=== PATIENT | male | born 2000 | race Two or more races ===

== ENCOUNTER 2023-06-17 19:17 | Emergency (ER) | payer MEDICARE, MEDICAID, SELFPAY ==
[2023-06-17 19:29] VITALS: BMI 32.3
--- NOTE | 2023-06-17 19:29 | ED_ITS ---
HPI - Extremity Injury (Upper) General Chief Complaint: Extremity Injury, Upper Stated Complaint: RT thumb injury Time Seen by Provider: 06/17/23 19:34 Source: patient and family Mode of arrival: ambulatory Limitations: no limitations History of Present Illness HPI narrative: Patient is a 22-year-old male who presents emergency department with his mother for evaluation of a paronychia to the right thumb. Onset was initially 1 week ago. Father used a clean insulin needle to try and drain the area, initially had a lot of pus drainage but then it reaccumulated. Continues to have surrounding redness, swelling, no reports of pain. Full AROM to the finger. Denies fevers, chills. Related Data Previous Rx's Medication Instructions Recorded cephalexin 500 mg capsule 500 mg PO QID 5 days #20 caps 06/17/23 mupirocin 2 % topical ointment 1 appl topical BID #15 grams 06/17/23 Allergies Allergy/AdvReac Type Severity Reaction Status Date / Time No Known Allergies Allergy Verified 06/17/23 19:34 Review of Systems Review of Systems: Yes all other systems are reviewed and are negative [facility] Past Medical History Attestation statement: The following information was validated with the patient. Source: old records reviewed Physical Exam Vital Signs: Vital Signs: BMI result Body Mass Index 32.3 Appearance: Alert.?Oriented to person, place and time. No acute distress.?Normal affect. Eyes: Pupils equal, round and reactive to light.? ENT: Pharynx normal.?? Neck: Normal inspection.? Neck supple.?? CVS: Heart sounds normal. Normal heart rate and rhythm.? Pulses normal.?? Respiratory: No respiratory distress.? Lung sounds clear to auscultation bilaterally??? Skin: Skin warm and dry.? Normal skin color.? Paronychia of right thumb. Extremities: full AROM to hand. and fingers Neuro: Moves all extremities spontaneously. Sensation intact bilaterally. Ambulates with normal steady gait. Medications Administered Discontinued Medications Generic Name Dose Route Start Last Admin Trade Name Freq PRN Reason Stop Dose Admin Lidocaine HCl 1 appl 06/17/23 19:34 06/17/23 19:44 Lidocaine 4 % Cream Kit TOPICAL 06/17/23 19:35 1 appl ONCE ONE Administration Protocol Lidocaine HCl 5 ml 06/17/23 20:11 06/17/23 20:21 Lidocaine Hcl 1 % Mpf 5 Ml Vial SUBCUT 06/17/23 20:12 5 ml ONCE ONE Administration Medical Decision Making Medical Decision Making MDM Narrative: Patient is a 22-year-old male who presents emergency department for evaluation of redness and swelling to the finger examination is consistent with paronychia. Not consistent with septic arthritis has full AROM is present afebrile. S/p incision and drainage as per procedure note and tolerated well. Plan to treat with course of antibiotics for localized cellulitis. Advised outpatient follow- up with primary care provider, discussed worrisome signs and symptoms that would warrant re-evaluation emergency department. All questions answered. Stable for discharge home. Differential Diagnosis Differential Diagnoses: The differential diagnosis associated with the presentation includes ( as noted above) Independent Historian Clinical information obtained from an independent historian. History obtained from or confirmed by: Parent ( present at bedside who confirms history) Tests considered The following testing was considered but not selected: considered XR imaging and labs, unlikely osseous involvement, see narrative above, XR deferred Prescription Management I considered prescription management with: Antibiotic Procedures Abscess I/D Site: hand Side (if applicable): right Local Anesthetic: lidocaine 1% and other anesthetic ( topical lidocaine) Amount of anesthesia used (mL): 1 Technique: needle aspiration and incised with blade Sent for culture/gram staining?: No Packing used?: none Discharge Plan Discharge Clinical Impression: Paronychia of finger Qualifiers: Laterality: right Qualified Code(s): L03.011 - Cellulitis of right finger Patient Disposition: Home, Self-Care Instructions: Paronychia (ED) Additional Instructions: Avoid biting nails, picking at hang nails. apply Antibiotic cream as prescribed and take the oral antibiotic as prescribed. Follow-up with your primary care provider for persistent symptoms. Return back to the emergency department any new or worsening symptoms or concerns. Prescriptions: New mupirocin 2 % ointment 1 appl topical BID Qty: 15 0RF cephalexin 500 mg capsule 500 mg PO QID 5 Days Qty: 20 0RF Referrals: Physician,Unknown J [Primary Care Provider] -
[2023-06-17] MEDS: Lidocaine 4 % Cream KIT 1 APPL TOPICAL (19:44)
--- NOTE | 2023-06-17 19:53 | PC.NURSE ---
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
[2023-06-17] MEDS: Lidocaine HCl 1 % MPF 5 ML VIAL SUBCUT (20:21)
[2023-06-17] MEDS: cephALEXin 500 MG CAPSULE PO (20:41)
--- OUTSIDE RECORDS SUMMARY | 2023-06-17 20:57 | XMS_ITS | Continuity of Care Document ---
Author Name Unknown Organization [facility] Address [address] [place] [address]- Encounter PSS Date(s): 08/18/22 - 08/25/22 [facility] [address] [place] [address]- Attending Physician: Not on Staff, Attending MD Allergies, Adverse Reactions, Alerts Substance Reaction Severity Status Arielle Active Benadryl makes him hyper Active Bee Stings anaphylaxis Active Concerta uncontrollable movements Act newton Immunizations Given and Recorded Vaccine Date Status Refusal Reason Meningococcal Conjugate Vaccine 05/03/19 Recorded Meningococcal Conjugate Vaccine 01/14/15 Recorded Human Papillomavirus Vaccine 04/04/17 Recorded Human Papillomavirus Vaccine 01/21/16 Recorded Human Papillomavirus Vaccine 01/14/15 Recorded Varicella Virus Vaccine 01/21/16 Recorded Varicella Virus Vaccine 09/10/03 Recorded Hepatitis A Vaccine (oldterm) 01/21/16 Recorded Hepatitis A Vaccine (oldterm) 10/09/12 Recorded tetanus/diphtheria/pertussis, acel(Tdap) 01/14/15 Recorded Influenza Virus Vaccine (oldterm) 04/17/14 Recorde d Measles/Mumps/Rubella Virus Vaccine 04/13/07 Recor ded Measles/Mumps/Rubella Virus Vaccine 09/10/03 Recor ded Poliovirus Vaccine, Inactivated 12/11/06 Recorded Poliovirus Vaccine, Inactivated 03/07/04 Recorded Poliovirus Vaccine, Inactivated 03/23/03 Recorded Poliovirus Vaccine, Inactivated 01/17/03 Recorded Poliovirus Vaccine, Inactivated 02 Recorded diphtheria/tetanus/pertussis, acel(DTaP) 12/07/06 Recorded diphtheria/tetanus/pertussis, acel(DTaP) 03/07/04 Recorded diphtheria/tetanus/pertussis, acel(DTaP) 03/23/03 Recorded diphtheria/tetanus/pertussis, acel(DTaP) 01/17/03 Recorded diphtheria/tetanus/pertussis, acel(DTaP) 02 Recorded Haemophilus B Conj Vaccine (oldterm) 03/07/04 Lei rded Haemophilus B Conj Vaccine (oldterm) 03/23/03 Lei rded Haemophilus B Conj Vaccine (oldterm) 01/17/03 Lei rded Haemophilus B Conj Vaccine (oldterm) 02 Lei rded Hepatitis B Vaccine (old term) 06/19/03 Recorded Hepatitis B Vaccine (old term) 01/17/03 Recorded Hepatitis B Vaccine (old term) 02 Recorded Medications albuterol CFC free 90 mcg/inh inhalation aerosol 2, puffs, Inhalation, Every 4 hours, PRN, # 2 each, Refills 0, Tot. Refills 0, Maintenance, 04/26/22 13:41:00 EDT, Aerosol, Route to Pharmacy Electronically, [id number], [facility], 172.72, cm, 04/26/22 13:12:00 E... Start Date: 04/26/22 Status: Ordered EpiPen 2-Wayne 0.3 mg injectable kit = 0.3 mg, Intramuscular, Once, # 2 each, 1 Refills, Soft Stop, 04/26/22 13:41:00 EDT, [facility], Partial fill upon patient request if the prescription is for a schedule II opioid drug., 172.72, cm, 04/26/22 13:12:00 EDT, Height, 108.4, kg... Start Date: 04/26/22 Status: Ordered Flovent Diskus 250 mcg/inh inhalation powder 1 puffs, Inhalation, 2 times a day, # 1 each, 11 Refills, Maintenance, 04/26/22 13:42:00 EDT, Powder, [facility], Partial fill upon patient request if the prescription is for a schedule II opioid drug., 1 puffs Inhalation 2 times a day,x30... Start Date: 04/26/22 Stop Date: 04/21/23 Status: Ordered fluvoxaMINE 50 mg oral tablet 2 tablet = 100 mg, By Mouth, Daily at bedtime, prescribed by Dr. Valdes, 0 Refills, Maintenance, 04/26/22 13:48:00 EDT, Tablet, Partial fill upon patient request if the prescription is for a schedule II opioid drug. Start Date: 04/26/22 Status: Ordered Focalin XR 40 mg oral capsule, extended release 1 capsule = 40 mg, By Mouth, Daily in AM, prescribed by Dr. Valdes, 0 Refills, Maintenance, 04/26/22 13:48:00 EDT, ER Capsule, Partial fill upon patient request if the prescription is for a schedule IIopioid drug. Start Date: 04/26/22 Status: Ordered High Potency Vitamin D3 25 mcg (1000 intl units) oral capsule 1 capsule = 25 mcg, By Mouth, Daily, 0 Refills, Maintenance, 04/26/22 13:51:00 EDT, Partial fill upon patient request if the prescription is for a schedule II opioid drug. Start Date: 04/26/22 Status: Ordered montelukast 10 mg oral tablet 10 mg, 1, tablet, By Mouth, Daily in PM, # 30 tablet, Refills 11, Tot. Refills 11, Maintenance, 04/26/22 13:42:00 EDT, Route to Pharmacy Electronically, [facility], Partial fill upon patient request if the prescription is for a schedule II... Start Date: 04/26/22 Stop Date: 04/21/23 Status: Ordered Topamax 100 mg oral tablet 1 tablet = 100 mg, By Mouth, 2 times a day, prescribed by Dr. Valdes, 0 Refills, Maintenance, 04/26/22 13:48:00 EDT, Tablet, Partial fill upon patient request if the prescription is for a schedule II opioid drug. Start Date: 04/26/22 Status: Ordered zonisamide 100 mg oral capsule 2 capsule = 200 mg, By Mouth, 2 times a day, with 25mg capsule; prescribed by Dr. Obregon in [place], # 60 capsule, 0 Refills, Maintenance, 04/26/22 13:48:00 EDT, Capsule, Partial fill upon patient request if the prescription is for a schedule II... Start Date: 04/26/22 Status: Ordered zonisamide 25 mg oral capsule 1 capsule = 25 mg, By Mouth, 2 times a day, with 100mg capsule; prescribed by Dr. Obregon in [place], # 60 capsule, 0 Refills, Maintenance, 04/26/22 13:48:00 EDT, Capsule, Partial fill upon patient request if the prescription is for a schedule II... Start Date: 04/26/22 Status: Ordered Problem List Condition Confirmation Course Effective Dates Status H ealt Status Informant Asthma Confirmed Active ADHD (attention deficit hyperactivity disorder) Confirmed Active Autism Confirmed Active Epilepsy Confirmed Active
--- OUTSIDE RECORDS SUMMARY | 2023-06-17 20:57 | XMS_ITS | Continuity of Care Document ---
Author Name Unknown Organization [facility] Address [address] [place] [address]- Encounter PSS Date(s): 03/02/22 - 04/01/22 [facility] [address] [place] [address]- Attending Physician: Not on Staff, Attending
--- OUTSIDE RECORDS SUMMARY | 2023-06-17 20:57 | XMS_ITS | Continuity of Care Document ---
Author Name Unknown Organization [facility] Address [address] [place] [address]- Encounter PSS Date(s): 04/26/22 - 05/03/22 [facility] [address] [place] [address]- Attending Physician: Reina Corado NP Allergies, Adverse Reactions, Alerts Substance Reaction Severity [...] 13:41:00 EDT, Aerosol, Route to Pharmacy Electronically, [id number], [facility], 172.72, cm, 04/26/22 13:12:00 [...] 25mg capsule; prescribed by Dr. Obregon in [place], # 60 capsule, 0 Refills, Maintenance, 04/26/22 13:48:00 EDT, Capsule, Partial fill upon patient request if the prescription is for a schedule II... Start Date: 04/26/22 Status: Ordered zonisamide 25 mg oral capsule 1 capsule = 25 mg, By Mouth, 2 times a day, with 100mg capsule; prescribed by Dr. Obregon in [place], # 60 capsule, 0 Refills, Maintenance, 04/26/22 13:48:00 EDT, Capsule, Partial fill upon patient request if the prescription is for a schedule II... Start Date: 04/26/22 Status: Ordered Problem List Condition Effective Dates Status Health Status Inform ant Asthma(Confirmed) Active ADHD (attention deficit hype ractivity disorder)(Confirmed) Active Autism(Confirmed) Active Epilepsy(Confirmed) Active Vital Signs Most recent to oldest [Reference Range]: 1 Height 172.72 cm (04/26/22 1:12 PM) Weight 108.4 kg (04/26/22 1:12 PM) Pulse Rate [55-90 bpm] 82 bpm (04/26/22 1:12 PM) Body Mass Index [18.5-24.99] 36.34 *>HHI* (04/26/22 1:12 PM) Blood Pressure [90-138/55-84 mm Hg] 122/ 86mm Hg (04/26/22 1:12 PM) Blood pressure sites Arm, right (04/26/22 1:12 PM) Dry Weight 108.4 kg (04/26/22 1:12 PM)
== END 2023-06-17 21:05 | disposition home or self-care (01) ==
PROVIDERS: Emergency Provider Emergency Medicine Emergency Medical Services
DX: L03.011 Cellulitis of right finger (principal)
CPT/HCPCS: 26010; 99282; 99284